=== PATIENT | female | born 1995 | race Caucasian/White ===

== ENCOUNTER 2020-04-01 19:19 | Emergency (ER) | payer BC, SELFPAY ==
--- NOTE | ~2020-04-01 | US_ITS ---
EXAMINATION: US OB <=14 wk fetus w TV DATE: 04/01/2020 22:06 INDICATION: Vaginal bleeding TECHNIQUE: Real-time transabdominal and transvaginal obstetric ultrasound. FINDINGS: No prior studies for comparison. The uterus measures 6.9 x 5 x 6 cm there is an intrauterine gestational sac containing a yolk sac. No definite pole is visualized. Gestational sac measurement is 0.77 cm corresponding to 5 week 3 day gestation. There is a 1.6 cm corpus luteal cyst of the right ovary. The left ovary is unremarkabl e. IMPRESSION: 1. Intrauterine gestational sac containing a yolk sac. Sac measurements correspond to 5 week 3 day ge station (JOSE 11/29/2020). No pole identified, likely due to early gestational age. Recommend fo llow-up with serial quantitative beta-hCG levels and ultrasound as clinically indicated. Reviewed, dictated and finalized at location A. OR CENTER DIRECTOR
[2020-04-01 19:22] VITALS: BP 141/80; PULSE 117; RESP 18; TEMP 36.5; O2SAT 98
--- NOTE | 2020-04-01 19:45 | PC.NURSE ---
patient brought back to ED room 7 with c/o vaginal bleeding that started earlier today while she was at work. patient states she is 5 weeks . patient is . no previous hx of miscarriage. did have x 2. alert. oriented. denies pain. denies dizziness. SL inserted. labs drawn. patient updated on current treatment plan.
[2020-04-01 19:51] VITALS: BP 121/68
[2020-04-01 19:55] LABS: Basophils Percent Auto 0.3 % (0.2-1.2); Eosinophils Absolute Auto 0.2 K/mm3 (0-0.3); Eosinophils Percent Auto 1.9 % (0-4.4); Hematocrit 40.9 % (37.0-47.0); Immature Granulocyte Absolute 0.05 K/mm3 (0.00-0.031); Immature Granulocyte Percent A 0.4 % (0-0.5); Lymphocytes Absolute Auto 2.05 K/mm3 (0.9-3.2); Lymphocytes Percent Auto 16.2 % (18.3-44.2); Mean Corpuscular HGB Conc 34.2 g/dl (32-36); Mean Corpuscular Hemoglobin 29.7 pg (26-34); Mean Corpuscular Volume 86.7 fl (80-100); Mean Platelet Volume 10.8 fl (7.4-10.4); Neutrophils Absolute Auto 9.2 K/mm3 (1.3-6.7); Neutrophils Percent Auto 73.2 % (45.5-73.1); Platelet Count Result 234 k/mm3 (150-375); Red Blood Count 4.72 M/mm3 (4.2-5.4); Red Cell Distribution Width 13.2 % (11.5-14.5); White Blood Count 12.6 K/mm3 (4.5-10.0)
[2020-04-01 19:59] LABS: Add Urine Microscopic? YES; Amorphous Sediment Urine Few; Appearance Urine Cloudy (Clear); Bacteria Urine 1+ /hpf; Bilirubin Urine Negative (Negative); Blood Urine 3+ (Negative); Color Urine Yellow (Yellow); Glucose Urine UA Negative (Negative); Ketones Urine Negative (Negative); Leukocyte Esterase Ur Negative LEU/UL (Negative); Mucus Urine Rare /lpf; Nitrate Urine Negative (Negative); Protein Urine 1+ mg/dL (Negative); RBC Urine 21-50 /hpf (0-2); Specific Grav Ur 1.018 (1.001-1.035); Squamous Epithelial Cell Urine Many /hpf (Few); Urobilinogen Urine Negative mg/dL (<2.0)
--- NOTE | 2020-04-01 19:59 | ED.GENADULT ---
HPI - General Adult General Chief complaint: Vaginal Bleeding Stated complaint: poss miscarriage-5weeks Time Seen by Provider: 04/01/20 19:35 Source: patient History of Present Illness HPI narrative: Patient 25 y/o female complaining of vaginal bleeding starting a few hours ago. She states that she noticed some blood clots but not sure about tissue. There is no alleviating or exacerbating factor. She also has some mild lower abdominal cramping. She states that she is approximately 5 week . Her LMP was on 02/22/20. She has no nausea, vomiting or dysuria. Review of Systems Constitutional: Constitutional: Denies chills, Denies fever(s), Denies headache(s) and Denies weakness Eyes: Eyes: Denies blurry vision ENT: Denies headache(s) and Denies neck pain Cardiovascular: Cardiovascular: Denies chest pain and Denies dyspnea Respiratory: Respiratory: Denies cough and Denies dyspnea Gastrointestinal: Gastrointestinal: Denies abdominal pain, Denies diarrhea, Denies nausea and Denies vomiting Genitourinary: Genitourinary: Reports abnormal vaginal bleeding, Denies hematuria, Denies dysuria and Reports pelvic pain Musculoskeletal: Musculoskeletal: Denies back pain and Denies neck pain Neurologic: Denies headache(s) and Denies weakness [facility] Social History Social History Gender identity (if verbalized by the patient): Female Exam Const: General: no acute distress and well developed Orientation/consciousness: oriented to person, oriented to place, oriented to time and patient oriented x3 HENMT: Head: normocephalic Ears: external ears normal General nose exam: Normal external nose present Eyes: General: appearance normal, both eyes and all related structures Conjunctivae: conjunctivae normal Neck: Neck: normal visual inspection and full ROM Chest: Chest palpation & inspection: normal inspection of the chest and no tenderness Resp: Effort & Inspection: normal respiratory effort Auscultation: clear to auscultation bilaterally Cardio: Rate: regular rate Rhythm: regular rhythm GI: GI Palp: No abdominal tenderness and Yes Soft to palpation : External Female Exam: normal external appearance Speculum Exam - Vagina: vaginal bleeding Speculum Exam - Cervix: normal appearance of the cervix and nontender Bimanual exam- vagina & uterus: normal bimanual exam Skin: General skin exam: normal color and turgor normal Neuro: General: oriented to person, oriented to place, oriented to time and patient oriented x3 Cognition (Neuro): normal cognition Extrem: General: normal to inspection, full ROM and no pedal edema Psych: Appearance: grossly normal Mental Status: mental status grossly normal Affect: normal affect Course Vital Signs Vital signs: Vital Signs Temperature 36.5 C 04/01/20 19:22 Pulse Rate 117 H 04/01/20 19:22 Respiratory Rate 18 04/01/20 19:22 Blood Pressure 141/80 H 04/01/20 19:22 Pulse Oximetry 98 04/01/20 19:22 Temperature 36.5 C 04/01/20 19:22 Pulse Rate 78 04/01/20 23:00 Respiratory Rate 16 04/01/20 23:00 Blood Pressure 122/60 04/01/20 23:00 Pulse Oximetry 100 04/01/20 23:00 Medical Decision Making Vital Signs Vital Signs: Vital Signs Temperature 36.5 C 04/01/20 19:22 Pulse Rate 117 H 04/01/20 19:22 Respiratory Rate 18 04/01/20 19:22 Blood Pressure 141/80 H 04/01/20 19:22 Pulse Oximetry 98 04/01/20 19:22 Temperature 36.5 C 04/01/20 19:22 Pulse Rate 78 04/01/20 23:00 Respiratory Rate 16 04/01/20 23:00 Blood Pressure 122/60 04/01/20 23:00 Pulse Oximetry 100 04/01/20 23:00 Lab Data Result diagrams: 04/01/20 19:46 04/01/20 19:46 Labs: Lab Results 04/01/20 04/01/20 04/01/20 Range/Units 19:46 19:46 19:46 WBC 12.6 H (4.5-10.0) K/mm3 RBC 4.72 (4.2-5.4) M/mm3 Hgb 14.0 (12.0-15.0) g/dL Hct 40.9 (37.0-47.0) % MCV 86.7
--- NOTE | 2020-04-01 20:00 | PC.NURSE ---
this RN to bedside with provider. pelvic exam done. patient tolerated well. patient given washcloths to clean up. advised she can put her pants back on.
[2020-04-01 20:06] LABS: Alanine Aminotransferase 16 U/L (4-35); Albumin Level 4.1 g/dL (3.5-5.1); Alkaline Phosphatase 60 U/L (38-126); Anion Gap 8 mmol/L (8-16); Aspartate Amino Transferase 23 U/L (14-36); Bilirubin,Total 0.3 mg/dL (0.2-1.3); Blood Urea Nitrogen 11 mg/dL (7-17); Calcium 9.2 mg/dL (8.4-10.2); Carbon Dioxide 24 mmol/L (22-30); Chloride 108 mmol/L (98-107); Estimated CRCL calculation 118 ml/min; Estimated Glomerular Filt Rate > 60; Glucose 107 mg/dL (65-105); Potassium 3.7 mmol/L (3.4-5.0); Sodium 140 mmol/L (137-145)
--- NOTE | 2020-04-01 20:41 | PC.NURSE ---
provider ordering ultrasound to r/o ectopic . patient updated.
[2020-04-01 23:00] VITALS: BP 122/60; PULSE 78; RESP 16; O2SAT 100
== END 2020-04-01 23:01 | disposition home or self-care (01) ==
PROVIDERS: Emergency Provider Emergency Medicine; PCP Obstetrics & Gynecology
DX: O20.0 Threatened abortion (principal); Z3A.01 Less than 8 weeks gestation of pregnancy
CPT/HCPCS: 36415; 76801; 76817; 80053; 81001; 81025; 84702; 85025; 86900; 86901; 99284

== ENCOUNTER 2020-04-08 13:34 | Outpatient (CLI) | payer BC, SELFPAY ==
--- NOTE | ~2020-04-08 | US_ITS ---
EXAMINATION: US OB <=14 wk fetus w TV DATE: 04/08/2020 14:19 INDICATION: Threatened TECHNIQUE: Real-time transabdominal and transvaginal obstetric ultrasound. FINDINGS: 04/01/2020 The uterus measures 10.3 x 6.1 x 5.6 cm. There is an intrauterine gestational sac, with pole id entified. The crown rump length measures 0.71 cm, which correlates with a estimated gestational age of 6 weeks 4 days. heart tones are identified measuring 142 BPM. There is a 2.2 cm corpus lut eal cyst of the right ovary. Left ovary is unremarkable. IMPRESSION: 1. SL IUP with an EGA of 6 weeks, 4 days (EDC by current ultrasound of 11/28/2020). 2: Corpus luteal cyst of the right ovary measured 2.2 cm. Reviewed, dictated and finalized at location B. CIL CUTTER IMPRESSION: 1. SL IUP with an EGA of 6 weeks, 4 days (EDC by current ultrasound of 11/29/19). 2: Corpus luteal cyst of the right ovary measured 2.2 cm.
== END 2020-04-08 13:35 | disposition home or self-care (01) ==
PROVIDERS: PCP Obstetrics & Gynecology; Visit Provider Obstetrics & Gynecology
DX: O20.0 Threatened abortion (principal); Z3A.01 Less than 8 weeks gestation of pregnancy; N83.11 Corpus luteum cyst of right ovary
CPT/HCPCS: 76801; 76817

== ENCOUNTER 2020-04-16 10:25 | Outpatient (CLI) | payer BC, SELFPAY ==
[2020-04-16 19:54] LABS: HIV 1/2 Ab P24 Ag Result Negative (Negative)
[2020-04-16 19:55] LABS: Hepatitis B Surface Antigen Negative (Negative); Rubella IgG Antibody 23.3 IU/ML
[2020-04-16 20:00] LABS: Hepatitis C Virus Antibody Negative (Negative)
[2020-04-18 06:54] LABS: Rapid Plasma Reagin Non-Reactive (NonReactive)
== END 2020-04-16 10:26 | disposition home or self-care (01) ==
LOC: ANHBWCLAB 10:27
PROVIDERS: PCP Obstetrics & Gynecology; Visit Provider Obstetrics & Gynecology
DX: Z34.90 Encounter for supervision of normal pregnancy, unspecified, unspecified trimester (principal)
CPT/HCPCS: 36415; 86592; 86703; 86762; 86803; 86850; 86900; 86901; 87340; G0432

== ENCOUNTER 2020-05-20 11:03 | Outpatient (CLI) | payer BC, SELFPAY ==
--- NOTE | ~2020-05-20 | US_ITS ---
EXAMINATION: US OB <= 14 weeks fetus DATE: 05/20/2020 11:57 INDICATION: Vaginal spotting TECHNIQUE: Real-time transabdominal obstetric ultrasound. FINDINGS: Comparison to multiple prior studies sequentially, with oldest reviewed study dated 2020. The uterus measures 12.8 x 9.2 x 10.5 cm. There is an intrauterine gestational sac, with pole i dentified. heart rate is 147 BPM. Coamo-rump length measures 6.06 cm. No evidence for subchorio millicent hemorrhage. Ovaries not visualized. IMPRESSION: 1. SL IUP with an EGA of 12 weeks, 4 days (EDC by initial ultrasound of 11/28/2020). Reviewed, dictated and finalized at location A. IMPRESSION: 1. SL IUP with an EGA of 12 weeks, 4 days (EDC by initial ultrasound of 021).
== END 2020-05-20 11:04 | disposition home or self-care (01) ==
PROVIDERS: Visit Provider Obstetrics & Gynecology
DX: O20.0 Threatened abortion (principal); Z3A.12 12 weeks gestation of pregnancy
CPT/HCPCS: 76801

== ENCOUNTER 2020-05-23 15:48 | Outpatient (CLI) | payer BC, SELFPAY ==
--- NOTE | ~2020-05-23 | US_ITS ---
EXAMINATION: US OB <=14 wk fetus w TV EXAM DATE: 05/23/2020 16:27 INDICATION: Viability, vaginal bleeding. Early 2nd trimester. TECHNIQUE: Pelvic obstetrical transabdominal and transvaginal sonogram was performed by a technologi . There are multiple grayscale and Doppler images available for interpretation. Comparison is made to prior examination from 05/20/2020. FINDINGS: There is live intrauterine gestation, heart rate confirmed at 142 bpm. Age by ultraso und on this examination 13 weeks 2 days with JOSE 11/26. There is a small subchorionic hemorrhage infer iorly. Both ovaries identified and are morphologically normal. IMPRESSION: Live intrauterine gestation, small subchorionic hemorrhage. Reviewed, dictated and finalized at location A.
== END 2020-05-23 15:49 | disposition home or self-care (01) ==
PROVIDERS: Visit Provider Obstetrics & Gynecology
DX: O20.0 Threatened abortion (principal); Z3A.14 14 weeks gestation of pregnancy
CPT/HCPCS: 76801; 76817

== ENCOUNTER 2020-06-04 20:49 | Emergency (ER) | payer BC, SELFPAY ==
[2020-06-04 20:50] VITALS: BP 141/89; PULSE 95; RESP 20; TEMP 36.6; O2SAT 99
--- NOTE | 2020-06-04 21:16 | ED.DENTAL ---
HPI - Dental/Oral General Chief complaint: Dental/Oral <Nico Wakefield MD - Last Filed: 06/04/20 21:44> Stated complaint: tooth pain <Nico Wakefield MD - Last Filed: 06/04/20 21:44> Time Seen by Provider: 06/04/20 21:15 <Nico Wakefield MD - Last Filed: 06/04/20 21:44> Source: patient <Nico Wakefield MD - Last Filed: 06/04/20 21:44> Mode of arrival: ambulatory <Nico Wakefield MD - Last Filed: 06/04/20 21:44> Limitations: no limitations <Nico Wakefield MD - Last Filed: 06/04/20 21:44> History of Present Illness HPI Narrative: Patient is a 25-year-old female complaining of dental pain, right lower molar, it has been going on for a year when I cracked it and it will have an attack once in awhile but recurred today. Patient states that she is 14 weeks . Patient denies any lip, tongue, throat swelling. Patient denies any dysphagia. Patient denies any fever or chills. <Nico Wakefield MD - Last Filed: 06/04/20 21:44> Related Data Home medications: Home Medications Medication Instructions Recorded Confirmed No Home Medications 06/04/20 <Nico Wakefield MD - Last Filed: 06/04/20 21:44> Allergies/adverse reactions: Allergies Allergy/AdvReac Type Severity Reaction Status Date / Time No Known Allergies Allergy Verified 06/04/20 21:29 <Nico Wakefield MD - Last Filed: 06/04/20 21:44> Review of Systems Review of Systems: All systems reviewed & are unremarkable except as noted in HPI and below <Nico Wakefield MD - Last Filed: 06/04/20 21:44> PMFSH Past Medical History Medical History: Medical History x1 Anxiety Asthma Depression <Nico Wakefield MD - Last Filed: 06/04/20 21:44> Surgical History Surgical History: Surgical History Previous section x2 <Nico Wakefield MD - Last Filed: 06/04/20 21:44> Family History Family History: Family History Grandparent Breast cancer Carcinoma of colon grandmother Father Hypertension Cerebrovascular accident <Nico Wakefield MD - Last Filed: 06/04/20 21:44> Social History Social History: Social History Smoking packs per day: 10 Smoking cigarettes per day: 200.0 Years smoked: 13 Smoking pack-years: 130.00 Smoking status: Current every day smoker Tobacco type: cigarettes Alcohol intake: never Substance use: current Substance use type: marijuana Other substance usage details: uses every few days Gender identity (if verbalized by the patient): Female Sexual Orientation (if Verbalized by the Patient): Straight or Heterosexual <Nico Wakefield MD - Last Filed: 06/04/20 21:44> Exam Const: General: no acute distress and alert <Nico Wakefield MD - Last Filed: 06/04/20 21:44> Orientation/consciousness: patient oriented x3 <Nico Wakefield MD - Last Filed: 06/04/20 21:44> HENMT: General nose exam: Normal external nose present and Normal nares present <Nico Wakefield MD - Last Filed: 06/04/20 21:44> Face and sinus: normal facial exam <Nico Wakefield MD - Last Filed: 06/04/20 21:44> Mouth: Yes Normal oral and palatal mucosa present, Yes lip normal, Yes tongue normal and Yes moist mucous membranes <Nico Wakefield MD - Last Filed: 06/04/20 21:44> Teeth and gingiva: caries and other (Negative for any significant gingival swelling, negative for abscess) <Nico Wakefield MD - Last Filed: 06/04/20 21:44> Eyes: Conjunctivae: conjunctivae normal <Nico Wakefield MD - Last Filed: 06/04/20 21:44> Neck: Neck: normal visual inspection <Nico Wakefield MD - Last Filed: 06/04/20 21:44> Resp: Effort & Inspection: normal respiratory effort
[2020-06-04] MEDS: HYDROcodone/acetaminophen (*CRX) 5-325 MG TABLET 1 TAB PO (21:53)
== END 2020-06-04 22:00 | disposition home or self-care (01) ==
PROVIDERS: Emergency Provider Emergency Medicine
DX: O99.612 Diseases of the digestive system complicating pregnancy, second trimester (principal); K08.89 Other specified disorders of teeth and supporting structures; O99.332 Smoking (tobacco) complicating pregnancy, second trimester; F17.210 Nicotine dependence, cigarettes, uncomplicated; Z3A.14 14 weeks gestation of pregnancy
CPT/HCPCS: 99283; A9270

== ENCOUNTER 2020-07-08 10:52 | Outpatient (CLI) | payer BC, SELFPAY ==
--- NOTE | ~2020-07-08 | US_ITS ---
EXAMINATION: US OB /maternal detail EXAM DATE: 07/08/2020 12:47 INDICATION: Z36.89 - Encounter for other specified screening anatomy. 2nd trimester. TECHNIQUE: Pelvic obstetrical transabdominal sonogram was performed by a technologist. There are mu ltiple grayscale and Doppler images available for interpretation. Comparison is made to prior examina tion from 05/23/2020. FINDINGS: There is a single fetus identified in breech presentation with a heart rate of 142 beats pe r minute. The placenta is located in the anterior position. Placental margin to internal cervical os distance is 5 cm. There is no sonographic evidence of retroplacental hemorrhage identified. The amnio tic fluid index is 13.4 centimeters, which is normal. BIOMETRIC DATA: Biparietal diameter (BPD): 4.4 cm ----------------> 19 weeks 1 day. Head circumference (HC): 17.0 cm ----------------> 19 weeks 4 days. Abdominal circumference (AC): 13.6 cm ----------> 19 weeks 0 days. Femur length (FL): 3.0 cm --------------------------> 19 weeks 1 day. These measurements are concordant. HC/AC ratio is 1.25 (The 5th -- 95th percentile range is 1.09-1.26. Estimated weight is 275 g +/- 41 g. This is the 22nd percentile when the currently reported cl inical gestation age 19 weeks 4 days, clinical estimated date of delivery (JOSE-OPE) 11/28/2020 is used . estimated gestational age based on measurements from this exam is 19 weeks 2 days, with an es timated date of delivery (JOSE-AUA) 11/30. ANATOMIC SURVEY: The following anatomy is identified and is sonographically normal in appearance: Cerebral ventricles Cerebellum Cisterna magna Nuchal fold CTL-spine Four-chamber heart Diaphragm Stomach Kidneys Bladder Three-vessel cord Cord insertion IMPRESSION: 1. Single fetus in breech presentation with heart rate 142 beats per minute. 2. Estimated weight of 275 grams, 22nd percentile using the currently reported clinical gestat ion age of 19 weeks 4 days, JOSE(OPE) 11/28. 3. Normal anatomic survey. 4. Normal EM 13.4 cm. Reviewed, dictated and finalized at location A. IMPRESSION: 1. Single fetus in breech presentation with heart rate 142 beats per minute. 2. Estimated weight of 275 grams, 22nd percentile using the currently re ported clinical gestation age of 19 weeks 4 days, JOSE(OPE) 11/28. 3. Normal anatomic survey. 4. Normal EM 13.4 cm.
== END 2020-07-08 10:53 | disposition home or self-care (01) ==
PROVIDERS: Visit Provider Obstetrics & Gynecology
DX: Z36.89 Encounter for other specified antenatal screening (principal); Z3A.00 Weeks of gestation of pregnancy not specified
CPT/HCPCS: 76805

== ENCOUNTER 2020-09-02 11:45 | Outpatient (CLI) | payer BC, SELFPAY ==
[2020-09-02 19:39] LABS: Basophils Absolute Auto 0.1 K/mm3 (0.0-0.1); Basophils Percent Auto 0.4 % (0.2-1.2); Eosinophils Absolute Auto 0.1 K/mm3 (0-0.3); Eosinophils Percent Auto 0.6 % (0-4.4); Hematocrit 37.5 % (37.0-47.0); Immature Granulocyte Absolute 0.15 K/mm3 (0.00-0.031); Immature Granulocyte Percent A 0.9 % (0-0.5); Lymphocytes Absolute Auto 1.72 K/mm3 (0.9-3.2); Lymphocytes Percent Auto 10.6 % (18.3-44.2); Mean Corpuscular Hemoglobin 29.3 pg (26-34); Mean Corpuscular Volume 91.5 fl (80-100); Mean Platelet Volume 11.6 fl (7.4-10.4); Monocytes Absolute Auto 0.7 K/mm3 (0.1-0.6); Monocytes Percent Auto 4.3 % (2.6-8.5); Neutrophils Absolute Auto 13.5 K/mm3 (1.3-6.7); Neutrophils Percent Auto 83.2 % (45.5-73.1); Platelet Count Result 186 k/mm3 (150-375); Red Cell Distribution Width 13.4 % (11.5-14.5); White Blood Count 16.3 K/mm3 (4.5-10.0)
[2020-09-02 19:50] LABS: Glucose 1 Hour PP 50gm Dose 172 mg/dL
[2020-09-04 12:59] LABS: HIV 1 2 Ag Ab 4th Gen w Rflxs Non-reactive (Non-reactive)
== END 2020-09-02 11:46 | disposition home or self-care (01) ==
LOC: ANHBWCLAB 11:47
PROVIDERS: Visit Provider Obstetrics & Gynecology
DX: Z34.90 Encounter for supervision of normal pregnancy, unspecified, unspecified trimester (principal); Z3A.00 Weeks of gestation of pregnancy not specified
CPT/HCPCS: 36415; 82947; 85025; 87389

== ENCOUNTER 2020-11-24 05:39 | Inpatient (IN) | payer BC, SELFPAY ==
--- NOTE | 2020-11-21 16:16 | PM.IMHP ---
H&P: HPI History of Present Illness Date/Time: 11/21/20 16:16 at 39+3 with h/o two prior C/S. No problems this or current complaints. Chief Complaint: Full term , two prior C sections Review of Systems Review of Systems: All systems reviewed & are unremarkable except as noted in HPI and below PMFSH Past Medical History Medical History x1 Anxiety Asthma Depression Surgical History Surgical History Previous section x2 Family History Family History Grandparent Breast cancer Carcinoma of colon grandmother Father Hypertension Cerebrovascular accident Social History Social History Smoking packs per day: 1 Smoking cigarettes per day: 20.0 Years smoked: 13 Smoking pack-years: 13.00 Smoking status: Current every day smoker Tobacco type: cigarettes Alcohol intake: never Substance use: current Substance use type: marijuana Other substance usage details: uses every few days Gender identity (if verbalized by the patient): Female Sexual Orientation (if Verbalized by the Patient): Straight or Heterosexual Spiritual care concerns: No Meds Home Medications and Allergies Home Medications Medication Instructions Recorded Confirmed Type prenat.vits,sohail,[id number] 1 tablet PO DAILY 07/08/20 11/12/20 History Allergies Allergy/AdvReac Type Severity Reaction Status Date / Time No Known Allergies Allergy Verified 11/19/20 13:00 Exam Const: General: healthy appearing, no acute distress, alert and awake Resp: Auscultation: clear to auscultation bilaterally Cardio: Rate: regular rate Rhythm: regular rhythm GI: Inspection: non-distended GI Palp: Yes Soft to palpation, No Tenderness to palpation present (GI) and Yes Other GI palpation findings present (gravid) Extrem: General: no pedal edema and no calf tenderness Psych: Mental Status: mental status grossly normal Assessment and Plan Assessment and plan (1) Previous delivery affecting : Code(s): O34.219 - Maternal care for unspecified type scar from previous delivery Status: Acute Assessment and Plan: at 39+3 with h/o two prior C/S. She opted and signed consent for repeat C section after risks, benefits, complications, and alternatives discussed.
[2020-11-24] VITALS (64 sets, daily range): BP systolic 52–127; BP diastolic 18–87; PULSE 54–124; RESP 14–20; TEMP 35.9–36.9; O2SAT 80–100; BMI 40.8
[2020-11-24] MEDS: LACTATED RINGERS 1,000 ML 125 ML IV CONT ×2 (06:32→07:28)
[2020-11-24 06:45] LABS: Basophils Absolute Auto 0.1 K/mm3 (0.0-0.1); Basophils Percent Auto 0.4 % (0.2-1.2); Eosinophils Absolute Auto 0.2 K/mm3 (0-0.3); Hematocrit 34.9 % (37.0-47.0); Hemoglobin 11.8 g/dL (12.0-15.0); Immature Granulocyte Absolute 0.26 K/mm3 (0.00-0.031); Immature Granulocyte Percent A 1.3 % (0-0.5); Lymphocytes Percent Auto 16.5 % (18.3-44.2); Mean Corpuscular HGB Conc 33.8 g/dl (32-36); Mean Corpuscular Volume 88.8 fl (80-100); Mean Platelet Volume 10.9 fl (7.4-10.4); Monocytes Absolute Auto 1.5 K/mm3 (0.1-0.6); Monocytes Percent Auto 7.9 % (2.6-8.5); Neutrophils Absolute Auto 14.2 K/mm3 (1.3-6.7); Neutrophils Percent Auto 72.9 % (45.5-73.1); Platelet Count Result 248 k/mm3 (150-375); Red Blood Count 3.93 M/mm3 (4.2-5.4); Red Cell Distribution Width 13.2 % (11.5-14.5); White Blood Count 19.4 K/mm3 (4.5-10.0)
--- NOTE | 2020-11-24 06:49 | LDADM ---
This patient, Suad Benjamin, was admitted to Labor/Delivery/Recovery 120 on 11/24/20 at 05:39. Plans for pain management and were discussed with patient. Patient/family oriented to hospital policies and general routines including ID bracelet, bed and alarms, visiting hours, pain management, procedures, bathroom and other care routines, personal items, smoking policy, room service/diet and guest tray routines, infant security routines, and visiting hours. Patient/Family are encouraged to report perceived risks to care and to ask questions if they do not understand what they are told or what they should do. See OBIX for further documentation.
--- NOTE | 2020-11-24 07:12 | WPDANESEPPF ---
Anes - Initial Pre Proc Eval Procedure: Operation Date: 11/24/20 07:30 Proposed Procedures p Repeat Section - Rosa Rose MD Date/Time: 11/24/20 07:12 Surgeon: Rosa Rose MD Pre Op Diagnosis: Repeat C/S Patient Data Age: 25 Gender: F Height: 1.6 m Weight: 104.5 kg Last Vital Signs Pulse 95 11/24/20 07:07 BP 94/76 L 11/24/20 07:07 Allergies Allergy/AdvReac Type Severity Reaction Status Date / Time No Known Allergies Allergy Verified 11/24/20 06:48 Home Medications Medication Instructions Recorded Confirmed Type prenat.vits,sohail,jyt-[id number] 1 tablet PO DAILY 07/08/20 11/24/20 History Laboratory Tests 11/24/20 11/24/20 06:31 06:31 WBC 19.4 K/mm3 H K/mm3 (4.5-10.0) RBC 3.93 M/mm3 L M/mm3 (4.2-5.4) Hgb 11.8 g/dL L g/dL (12.0-15.0) Hct 34.9 % L % (37.0-47.0) MCV 88.8 fl fl (80-100) MCH 30.0 pg pg (26-34) MCHC 33.8 g/dl g/dl (32-36) RDW 13.2 % % (11.5-14.5) Plt Count 248 k/mm3 k/mm3 (150-375) MPV 10.9 fl H fl (7.4-10.4) Immature Gran % (Auto) 1.3 % H % (0-0.5) Neut % (Auto) 72.9 % % (45.5-73.1) Lymph % (Auto) 16.5 % L % (18.3-44.2) [place] % (Auto) 7.9 % % (2.6-8.5) Eos % (Auto) 1.0 % % (0-4.4) Baso % (Auto) 0.4 % % (0.2-1.2) Lymph # (Auto) 3.20 K/mm3 K/mm3 (0.9-3.2) [place] # (Auto) 1.5 K/mm3 H K/mm3 (0.1-0.6) Eos # (Auto) 0.2 K/mm3 K/mm3 (0-0.3) Baso # (Auto) 0.1 K/mm3 K/mm3 (0.0-0.1) Abs Immat Gran (auto) 0.26 K/mm3 H K/mm3 (0.00-0.031) Absolute Neuts (auto) 14.2 K/mm3 H K/mm3 (1.3-6.7) Absolute Nucleated RBC 0.0 K/mm3 K/mm3 (0.0-0.012) Nucleated RBC % 0.0 % % (0.0-0.2) RPR Pending Patient hx anesthesia problems: post op nausea/vomiting Family hx anesthesia problems: none Results Review: All pre-operative results and documents have been reviewed as part of the pre-operative evaluation. [facility] Past Medical History Medical History x1 Anxiety Asthma Depression Surgical History Surgical History Previous section x2 Family History Family History Grandparent Breast cancer Carcinoma of colon grandmother Father Hypertension Cerebrovascular accident Mother H/O: hysterectomy Sibling Testicular cancer Social History Social History Smoking packs per day: 1 Smoking cigarettes per day: 20.0 Years smoked: 13 Smoking pack-years: 13.00 Smoking status: Light tobacco smoker Tobacco type: e-cigarettes/vaping Second hand tobacco smoke exposure: Yes Alcohol intake: never Substance use: current Substance use type: marijuana Other substance usage details: uses every few days Gender identity (if verbalized by the patient): Female Sexual Orientation (if Verbalized by the Patient): Straight or Heterosexual Spiritual care concerns: No Anes - Eval Final PreProcedure Day of Procedure 11/24/20 07:12 Patient weight: morbidly obese Heart: regular rate and rhythm Lungs: clear to auscultation Airway: Mallampati scale class II Neurological: alert and oriented Last oral intake: >/= 8 hours ASA classification: III Emergent: no Anesthetic plan: proceed Anesthesia type and monitoring: regional spinal and standard monitoring Results Review: All pre-operative results and documents have been reviewed as part of the pre-operative evaluation. Informed Consent: The patient's anesthetic plan and its attendant risks and benefits were discussed with the patient/family/POA. Questions were solicited and answers provided to the satisfaction of the patient/family/POA.
--- NOTE | 2020-11-24 07:24 | WPDHPUPDATE1 ---
History and Physical Update Update Date/Time: 11/24/20 07:24 History and Physical has been reviewed, including an updated exam of the patient. There are NO changes in the patient's condition. Risks, benefits, and alternatives have been discussed and questions answered. Patient agrees to proceed with procedure.
[2020-11-24] MEDS: SCOPOLAMINE 1.5 MG PATCH TRANSDERM (07:26)
--- NOTE | 2020-11-24 07:26 | P.OP_ITS ---
Procedure Note - Detailed Date of Procedure 11/24/20 Pre-op Diagnosis Repeat C/S Post-op Diagnosis same Procedure Performed Repeat LTCS Surgeon Rosa Rose MD Anesthesia spinal Indications at 39+3 with h/o two prior C sections Findings Female , cephalic; Apgars 8/9; weight 8# 3oz; normal uterus, tubes and ovaries Description of Procedure She was taken to the operating room where spinal anesthesia was obtained and found to be adequate. She was prepared and draped in the normal sterile fashion in the dorsal supine position with a leftward tilt. A Pfannenstiel skin incision was made with a scalpel over her prior incisions and extended to the underlying layer of fascia with the scalpel. The fascia was incised in the midline with a scalpel and extended laterally with Walker scissors. The un derlying rectus muscles were dissected off bluntly and sharply. The peritoneum was in the midline and extended inferiorly and superiorly with good visualization of the bladder. The bladder blade was inserted. The vesicouterine peritoneum was tented up and entered sharply with the Metzenbaum scissors. The bladder flap was created sharply. The bladder blade was reinserted. The lower uterine segment was incised in a transverse fashion with the scalpel. The incision was digitally stretched in a cephalad caudad direction. The membranes were ruptured with clear fluid noted. The 's head was delivered atraumatically. The shoulders and body were delivered easily. The cord was clamped x2 and cut. The infant was passed to the awaiting nurse. Cord gas and cord blood was obtained. The placenta was manually extracted. The uterus was exteriorized and cleared of all clots and debris. The uterine incision was closed using 0 Vicryl in a running locked fashion. There were couple bleeding points in the middle of the uterine incision which were easily controlled using 0 Vicryl [id number] sutures. The uterus was returned to the abdomen. The gutters were cleared of all clots and debris. The uterine incision was reinspected and found to be hemostatic. The rectus muscles were inspected. Any bleeding points were cauterized. The rectus muscles were reapproximated using an 0 Vicryl [id number] suture. The fascia was closed using 0 Vicryl in a running fashion. The subcutaneous tissue was irrigated. Any bleeding points were cauterized. The subcutaneous tissue was reapproximated using 2 0 Vicryl [id number] sutures. The skin was closed using Insorb absorbable oliva. She tolerated the procedure well. Sponge, lap, needle, and instrument counts were correct x2. She was taken to the recovery area in stable condition. Estimated Blood Loss 435 Drains Yes (Rodríguez) Packing No Pathology none sent Complications No immediate complications Condition stable Disposition floor
[2020-11-24] MEDS: ceFAZolin 2 GM/D5W 50 ML 2 GM/50 ML BAG IVPB (07:40)
[2020-11-24 08:35] LABS: Amphetamine Screen Urine Negative (Negative); Barbiturate Screen Urine Negative (Negative); Benzodiazepines Screen Urine Negative (Negative); Cannabinoid Screen Urine Positive (Negative); Cocaine Screen Urine Negative (Negative); Methadone Screen Urine Negative (Negative); Opiate Screen Urine Negative (Negative); Phencyclidine Screen Urine Negative (Negative)
[2020-11-24] MEDS: OXYTOCIN 30 UNITS/NS 500 ML 30 UNITS/500 ML BAG 125 UNITS IV CONT (09:30)
[2020-11-24] MEDS: MORPHINE SULFATE (*CRX) 2 MG/ML INJ 3 MG IV PUSH (10:07)
[2020-11-24] MEDS: KETOROLAC 30 MG/ML VIAL (*BKC) IV PUSH ×2 (11:14→17:23)
--- NOTE | 2020-11-24 11:19 | OBPPTRN ---
Patient transferred to post room # 281 via stretcher. Support person present. Oriented to unit, room, information board, rooming in, admission packet and security measures. Patient verbalizes understanding.
[2020-11-24 12:44] LABS: Rapid Plasma Reagin Non-Reactive (NonReactive)
[2020-11-24] MEDS: DEXTROSE 5%/0.45% SOD CHL 1,000 ML 125 ML IV CONT (13:27)
[2020-11-25] MEDS: IBUPROFEN 600 MG TABLET PO ×4 (04:39→23:19)
[2020-11-25] MEDS: HYDROcodone/acetaminophen (*CRX) 10-325 MG TABLET 1 TAB PO ×3 (04:40→17:57)
[2020-11-25 04:45] VITALS: BP 99/50; PULSE 70; RESP 16; TEMP 36.6
[2020-11-25 05:44] LABS: Basophils Percent Auto 0.3 % (0.2-1.2); Eosinophils Absolute Auto 0.2 K/mm3 (0-0.3); Eosinophils Percent Auto 1.2 % (0-4.4); Hematocrit 32.1 % (37.0-47.0); Hemoglobin 10.4 g/dL (12.0-15.0); Immature Granulocyte Absolute 0.15 K/mm3 (0.00-0.031); Lymphocytes Percent Auto 16.6 % (18.3-44.2); Mean Corpuscular HGB Conc 32.4 g/dl (32-36); Mean Corpuscular Hemoglobin 29.1 pg (26-34); Mean Corpuscular Volume 89.9 fl (80-100); Mean Platelet Volume 11.2 fl (7.4-10.4); Monocytes Absolute Auto 1.3 K/mm3 (0.1-0.6); Monocytes Percent Auto 8.7 % (2.6-8.5); Neutrophils Absolute Auto 10.4 K/mm3 (1.3-6.7); Neutrophils Percent Auto 72.2 % (45.5-73.1); Platelet Count Result 233 k/mm3 (150-375); Red Blood Count 3.57 M/mm3 (4.2-5.4); Red Cell Distribution Width 13.2 % (11.5-14.5); White Blood Count 14.4 K/mm3 (4.5-10.0)
--- NOTE | 2020-11-25 08:13 | WPDANESPN ---
Anes - Prog Note Post-Op Date/Time: 11/25/20 08:13 Vital Signs: Last Vital Signs Temp 97.9 F 11/25/20 04:45 Pulse 70 11/25/20 04:45 Resp 16 11/25/20 04:45 BP 99/50 L 11/25/20 04:45 Pulse Ox 99 11/24/20 19:40 Pain Score (VAS): 0 I/O: Intake & Output 11/24/20 11/25/20 11/25/20 23:59 07:59 15:59 Intake Total 200 500 Output Total 425 900 Balance -225 -400 Laboratory Tests 11/25/20 04:30 11/24/20 11/24/20 11/25/20 06:31 07:51 04:30 WBC 14.4 H RBC 3.57 L Hgb 10.4 L Hct 32.1 L MCV 89.9 MCH 29.1 MCHC 32.4 RDW 13.2 Plt Count 233 MPV 11.2 H Immature Gran % (Auto) 1.0 H Neut % (Auto) 72.2 Lymph % (Auto) 16.6 L [place] % (Auto) 8.7 H Eos % (Auto) 1.2 Baso % (Auto) 0.3 Lymph # (Auto) 2.40 [place] # (Auto) 1.3 H Eos # (Auto) 0.2 Baso # (Auto) 0.0 Abs Immat Gran (auto) 0.15 H Absolute Neuts (auto) 10.4 H Absolute Nucleated RBC 0.0 Nucleated RBC % 0.0 Urine Opiates Screen Negative Urine Methadone Screen Negative Ur Barbiturates Screen Negative Ur Phencyclidine Scrn Negative Ur Amphetamine Screen Negative U Benzodiazepines Scrn Negative Urine Cocaine Screen Negative U Cannabinoids Screen Positive A RPR Non-reactive Post-procedural complaints: none Patient Feedback: Patient satisfied with anesthetic care.
--- NOTE | 2020-11-25 08:15 | WPDANLDPN2 ---
Anes-Prog Note L&D Date/Time: 11/25/20 08:15 Comfortable throughout: section Neuraxial method: spinal Epidural/Spinal procedure site: bruising Neuro status: Neuro function grossly intact. Vital Signs: Last Vital Signs Temp 97.9 F 11/25/20 04:45 Pulse 70 11/25/20 04:45 Resp 16 11/25/20 04:45 BP 99/50 L 11/25/20 04:45 Pulse Ox 99 11/24/20 19:40 Pain score (VAS): 0 back pain I/O: Intake & Output 11/24/20 11/25/20 11/25/20 23:59 07:59 15:59 Intake Total 200 500 Output Total 425 900 Balance -225 -400 Post-procedural complaints: none Patient feedback: Patient satisfied with anesthetic care.
--- NOTE | 2020-11-25 08:26 | PM.OBPNVD ---
OB - PN: Subj Subjective Date/time seen: 11/25/20 08:26 Patient comments: no complaints, pain well controlled, incisional pain, tolerating diet, flatus present and other (Lochia similar to menses) baby status: doing well OB - PN: Obj Data Labs CBC & Chem 7: 11/25/20 04:30 Labs: Laboratory Results - last 24 hr 11/24/20 11/24/20 11/25/20 06:31 07:51 04:30 WBC 14.4 H RBC 3.57 L Hgb 10.4 L Hct 32.1 L MCV 89.9 MCH 29.1 MCHC 32.4 RDW 13.2 Plt Count 233 MPV 11.2 H Immature Gran % (Auto) 1.0 H Neut % (Auto) 72.2 Lymph % (Auto) 16.6 L [place] % (Auto) 8.7 H Eos % (Auto) 1.2 Baso % (Auto) 0.3 Lymph # (Auto) 2.40 [place] # (Auto) 1.3 H Eos # (Auto) 0.2 Baso # (Auto) 0.0 Abs Immat Gran (auto) 0.15 H Absolute Neuts (auto) 10.4 H Absolute Nucleated RBC 0.0 Nucleated RBC % 0.0 Urine Opiates Screen Negative Urine Methadone Screen Negative Ur Barbiturates Screen Negative Ur Phencyclidine Scrn Negative Ur Amphetamine Screen Negative U Benzodiazepines Scrn Negative Urine Cocaine Screen Negative U Cannabinoids Screen Positive A RPR Non-reactive OB - PN A/P Plan day: 1 (s/p C section, doing well) Plan: routine care Time Spent With Patient Time: Total time spent is greater than 50% in coordination of care (as documented) at patient's floor/unit and/or counseling patient: Exam Const: General: no acute distress Resp: Auscultation: clear to auscultation bilaterally Cardio: Rate: regular rate Rhythm: regular rhythm GI: Inspection: non-distended, incision (Intact without erythema, drainage, or induration) and other (Fundus firm and nontender at umbilicus) GI Palp: Yes abdominal tenderness (appropriate ) and Yes Soft to palpation Extrem: General: no edema
[2020-11-25] MEDS: DOCUSATE SODIUM 100 MG CAPSULE PO (10:22)
--- NOTE | 2020-11-25 11:57 | PCCCNOTE ---
Recvd notification that pt. tested positive for THC during her urine drug screen. Pt. reports using THC during due to her anxiety, depression, and pain. Baby girl's urine drug screen was negative. Baby's meconium is pending. Pt. and LEXUS Hawthorne at bedside. Pt. reports they have a ten year old daughter and five year old son at home as well. Pt. reports they have support on both sides of their family. Pt. reports having all necessary supplies for baby girl. Pt. reports they are over qualified for [employer] [facility] [employer]. Pt. denies any prior involvement with DCFS. Pt. reports she may follow up with her OB doctor regarding her anxiety and depression. resources provided to pt. DCFS online report filed #[id number]. JULIANNA sotelo.
[2020-11-25 18:53] VITALS: BP 96/61; PULSE 87; RESP 16; TEMP 36.6; O2SAT 98
[2020-11-25 19:25] VITALS: BP 115/66; PULSE 75; RESP 16; TEMP 36.1; O2SAT 98
[2020-11-25] MEDS: HYDROcodone/acetaminophen (*CRX) 5-325 MG TABLET 1 TAB PO (23:19)
--- NOTE | 2020-11-26 07:55 | PM.OBPNVD ---
OB - PN: Subj Subjective Date/time seen: 11/26/20 07:55 Patient comments: no complaints, pain well controlled, tolerating diet, flatus present and other (Ambulating and voiding without problems. Lochia similar to menses) baby status: doing well OB - PN: Obj Data Labs CBC & Chem 7: 11/25/20 04:30 OB - PN A/P Plan day: 2 (s/p C section, doing well) Plan: routine care and discharge home (Follow up in 1 week) Time Spent With Patient Time: Total time spent is greater than 50% in coordination of care (as documented) at patient's floor/unit and/or counseling patient: Time with patient: less than 15 minutes Exam Const: General: no acute distress Resp: Auscultation: clear to auscultation bilaterally Cardio: Rate: regular rate Rhythm: regular rhythm GI: Inspection: non-distended, incision (Intact without erythema, drainage, or induration) and other (Fundus firm and nontender below umbilicus) GI Palp: Yes abdominal tenderness (appropriate) and Yes Soft to palpation Extrem: General: no edema
--- NOTE | 2020-11-26 07:55 | PM.OBDSVD ---
DS: Admitting Diagnosis Discharge Date 11/26/2020 Admitting Diagnosis Prior C section DS: Discharge Diagnosis Discharge Diagnosis (1) Status post repeat low transverse section: Code(s): Z98.891 - History of uterine scar from previous surgery Status: Acute OB - DS: Summary OB Procedures : None OB Procedures Intrapartum: low cervical, transverse OB Procedures: : None Peripartum Data Procedures: Procedures Operation Date: 11/24/20 07:30 Actual Procedure Side Surgeon p Section Not Applicable Rosa Rose MD Time Spent with Patient Time attestation: Total time spent providing and/or coordinating discharge services: Discharge Plan Discharge Attending physician on discharge: Rosa Rose Discharging Clinician: Rosa Rose Patient Disposition: Home, Self-Care Activity: may shower and pelvic rest Diet: as tolerated Wound Care Instructions: incision open to air Patient Instructions: Antibiotic Form, How to Stop Smoking (GEN), Cigarette Smoking and Your Health (GEN), Secondhand Smoke Exposure in Children (GEN), How to Quit Using Smokeless Tobacco (GEN), Electronic Cigarettes and Your Health (GEN) Stand Alone Forms: General Discharge Information Follow-up/Referrals: Rosa Rose MD [Physician] - 1 Week Discharge Medications: New hydrocodone-acetaminophen 5-325 mg Tablet 1 tablet PO Q4H PRN (Reason: Moderate Pain (4-6)) Qty: 30 RF: 0 ibuprofen 600 mg Tablet 600 mg PO Q6H PRN (Reason: Cramping) Qty: 60 RF: 0 Continued prenat.vits,sohail,[id number] Tablet 1 tablet PO DAILY RF: 0 Date of admission: 11/24/20 05:39 Primary Care Provider: PHYSICIAN,[employer]IED [employer] MECH[employer]IC Admitting Provider: Rosa Rose Attending physician on admission: Rosa Rose Condition: Stable
[2020-11-26 08:30] VITALS: BP 92/52; PULSE 68; RESP 18; TEMP 36.8; O2SAT 98
[2020-11-26] MEDS: HYDROcodone/acetaminophen (*CRX) 5-325 MG TABLET 1 TAB PO (09:16)
[2020-11-26] MEDS: IBUPROFEN 600 MG TABLET PO (09:16)
[2020-11-26] MEDS: DOCUSATE SODIUM 100 MG CAPSULE PO (09:17)
[2020-11-26] MEDS: TETANUS,DIPHTHERIA,AC PERTUSSIS ADULT (0.5 ML) BOOSTRIX IM (09:17)
--- NOTE | 2020-11-26 12:30 | PC.NURSE ---
1130-Abdominal binder given to patient as per Dr. Rose's orders.
[2020-11-27 11:16] VITALS: BP 118/70; PULSE 87; RESP 20; TEMP 36.6; O2SAT 100
== END 2020-11-26 11:55 | disposition home or self-care (01) | DRG 787 ==
LOC: ANHLDR 05:42 → ANHOB2 11:30
PROVIDERS: Admitting Provider Obstetrics & Gynecology; Visit Provider Obstetrics & Gynecology
PROC: 10D00Z1 Extraction of Products of Conception, Low, Open Approach (ICD-10-PCS; CPT 59514; principal; 2020-11-24 07:30)
DX: O34.211 Maternal care for low transverse scar from previous cesarean delivery (principal); O99.324 Drug use complicating childbirth; Z3A.39 39 weeks gestation of pregnancy; Z37.0 Single live birth; O99.334 Smoking (tobacco) complicating childbirth; F17.210 Nicotine dependence, cigarettes, uncomplicated; F12.90 Cannabis use, unspecified, uncomplicated; O99.214 Obesity complicating childbirth; E66.01 Morbid (severe) obesity due to excess calories; O99.344 Other mental disorders complicating childbirth; F41.9 Anxiety disorder, unspecified; F32.9 Major depressive disorder, single episode, unspecified
CPT/HCPCS: 36415; 80307; 85025; 86592; 86850; 86900; 86901; 90715; A9270; J0131; J0690; J1885; J2250; J2270; J2274; J2370; J2405; J2590; J7120

== ENCOUNTER 2020-12-02 20:56 | Emergency (ER) | payer BC, SELFPAY ==
[2020-12-02 21:10] VITALS: BP 116/71; PULSE 62; RESP 14; TEMP 36.4; O2SAT 100
[2020-12-02 21:37] VITALS: BP 130/85; PULSE 71; RESP 18; TEMP 36.6; O2SAT 99
--- NOTE | 2020-12-02 22:53 | ED.LOWEXIN ---
HPI - Extremity Injury (Lower) General Chief Complaint: Extremity Injury, Lower Stated Complaint: left calf pain, c section last week Time Seen by Provider: 12/02/20 22:31 Source: patient History of Present Illness HPI Narrative: Patient presents with left lower extremity pain. Patient had a on the he has been recovering since then however she has had bilateral lower extremity edema and slight increase in pain on the left compared to the right. She saw her OB provider and was referred to the ER for evaluation. Reports pain past several days worse with walking around and is primarily on her left calf. Related Data Home Medications Medication Instructions Recorded Confirmed prenat.vits,sohail,[id number] 1 tablet PO DAILY 07/08/20 12/02/20 Allergies Allergy/AdvReac Type Severity Reaction Status Date / Time No Known Allergies Allergy Verified 12/02/20 21:41 Review of Systems Review of Systems: CONSTITUTIONAL: Denies fever, chills, or sweats. EYES: Denies visual changes, redness, or discharge. ENT: Denies rhinorrhea, congestion, sore throat, or otalgia. CARDIOVASCULAR: Denies chest pain, palpitations, or edema. RESPIRATORY: Denies cough or dyspnea. GASTROINTESTINAL: Denies abdominal pain, nausea, vomiting, or diarrhea. GENITOURINARY: Denies dysuria or hematuria. SKIN: Denies rash or itching. MUSCULOSKELETAL: Denies back pain, joint pain, or myalgia. NEUROLOGIC: Denies headache, numbness, dizziness, or weakness. PSYCHIATRIC: Denies anxiety or depression. All systems reviewed & are unremarkable except as noted in HPI and below PMFSH Past Medical History Medical History x1 Anxiety Asthma Depression Surgical History Surgical History Previous section x3 Family History Family History Grandparent Breast cancer Carcinoma of colon grandmother Father Hypertension Cerebrovascular accident Mother H/O: hysterectomy Sibling Testicular cancer Social History Social History Smoking packs per day: 1 Smoking cigarettes per day: 20.0 Years smoked: 13 Smoking pack-years: 13.00 Smoking status: Light tobacco smoker Tobacco type: e-cigarettes/vaping Second hand tobacco smoke exposure: Yes Alcohol intake: never Substance use: current Substance use type: marijuana Other substance usage details: uses every few days Gender identity (if verbalized by the patient): Female Sexual Orientation (if Verbalized by the Patient): Straight or Heterosexual Spiritual care concerns: No Exam Narrative: GENERAL: Well-appearing, well-nourished, and in no acute distress. HEAD: Normocephalic, atraumatic. EYES: PERRLA and EOMI. ENT: Nares clear, no rhinorrhea or epistaxis. Mucous membranes moist. NECK: Supple. No masses. No JVD EXTREMITIES: Symmetric pitting edema in the bilateral lower extremities 1+ up to bilateral knees. Mild tenderness with palpation along the left calf SKIN: Warm, dry, no rash. NEURO: No focal deficits. Alert and oriented x3. PSYCH: Normal mood and affect. Course Vital Signs Vital signs: Vital Signs Temperature 36.4 C L 12/02/20 21:10 Pulse Rate 62 12/02/20 21:10 Respiratory Rate 14 12/02/20 21:10 Blood Pressure 116/71 12/02/20 21:10 Pulse Oximetry 100 12/02/20 21:10 Temperature 36.6 C 12/02/20 21:37 Pulse Rate 52 L 12/02/20 23:51 Respiratory Rate 16 12/02/20 23:51 Blood Pressure 139/92 H 12/02/20 23:51 Pulse Oximetry 99 12/02/20 23:51 MDM - Extremity Injury (Lower) MDM Narrative Medical decision making narrative: H&P as above, vss, pt looks clinically well, exam with symmetric lower extremity edema, labs/img considered. Ultrasound is unavailable overnight patient was scheduled fo
[2020-12-02 23:51] VITALS: BP 139/92; PULSE 52; RESP 16; O2SAT 99
== END 2020-12-02 23:53 | disposition home or self-care (01) ==
PROVIDERS: Emergency Provider Emergency Medicine
DX: M79.662 Pain in left lower leg (principal); F17.290 Nicotine dependence, other tobacco product, uncomplicated
CPT/HCPCS: 99281